=== PATIENT | female | born 1960 | race Caucasian/White ===

== ENCOUNTER 2019-07-14 00:29 | Emergency (ER) | payer OTHER ==
--- NOTE | 2019-07-14 02:14 | EDPHYS ---
Physician Documentation [facility] Name: Kristie Hanks Age: 58 yrs Sex: Female : 1960 Arrival Date: 07/14/2019 Time: 00:31 Bed 13 Private MD: ED Physician Marko Pretty HPI: 07/14 01:11 This 58 yrs old Female presents to ER via Wheelchair with complaints of Foot jmm Injury. 01:11 The patient presents with an injury, pain, that is acute. Onset: The symptoms/episode jmm began/occurred acutely, just prior to arrival. Modifying factors: The symptoms are alleviated by nothing. Associated signs and symptoms: Pertinent positives: swelling. This is a 58 year old female with a history of hypoglycemia that presents to the ED with complaints of left ankle pain beginning after missing a step. Denies other injury. Has not tried to bear weight. . Historical: - Allergies: 00:46 No Known Allergies; tr5 - PMHx: 00:46 hypoglycemic; tr5 - PSHx: 00:46 Tonsillectomy; tr5 - Immunization history:: Adult Immunizations up to date. - Social history:: Smoking status: Patient/guardian denies using tobacco. - Ebola Screening: : No symptoms or risks identified at this time. ROS: 01:11 Constitutional: Negative for fever, chills, and weight loss, Cardiovascular: Negative jmm for chest pain, palpitations, and edema, Respiratory: Negative for shortness of breath, cough, wheezing, and pleuritic chest pain. 01:11 MS/extremity: Positive for injury or acute deformity, pain, swelling. 01:11 All other systems are negative. Exam: 01:11 Constitutional: This is a well developed, well nourished patient who is awake, alert, jmm and in no acute distress. Head/Face: atraumatic. Eyes: EOMI, no conjunctival erythema appreciated ENT: Moist Mucus Membranes Neck: Trachea midline, Supple Chest/axilla: Normal chest wall appearance and motion. Cardiovascular: Regular rate and rhythm. No edema appreciated Respiratory: Normal respirations, no respiratory distress appreciated Abdomen/GI: Non distended, soft Back: Normal ROM Skin: General appearance color normal 01:11 Musculoskeletal/extremity: swelling noted to the left lateral ankle, no bony tenderness appreciated, compartments are soft, NVI, full dorsalis pulse. 01:11 Skin: Appearance: Color: normal in color. 01:11 Neuro: Orientation: is normal, Mentation: is normal, Memory: is normal. 01:11 Psych: Behavior/mood is pleasant, cooperative. Vital Signs: 00:46 BP 121 / 67; Pulse 78; Resp 16; Temp 98.1(O); Pulse Ox 100% on R/A; Weight 76.2 kg; tr5 Height 5 ft. 4 in. (162.56 cm); 01:45 BP 113 / 66; Pulse 92; Resp 16; Pulse Ox 100% on R/A; jb4 00:46 Body Mass Index 28.84 (76.20 kg, 162.56 cm) tr5 Procedures: 02:09 Splinting: Splint applied to left leg using Ortho 3D boot, applied by nurse. Examined jm by me, post splint application: neurovascular intact, 2+ distal pulses palpable, brisk capillary refill noted, Patient tolerated well. MDM: 01:03 Patient medically screened. [facility] 02:09 Data reviewed: vital signs, nurses notes. Counseling: I had a detailed discussion with evie the patient and/or guardian regarding: the historical points, exam findings, and any diagnostic results supporting the discharge/admit diagnosis, radiology results, the need for outpatient follow up, to return to the emergency department if symptoms worsen or persist or if there are any questions or concerns that arise at home. ED course: Patient is advised to follow up with ortho is pain continues after 1 week. Xray appears wnl. . 07/14 00:54 Order name: Ankle Left 3 View XRAY [facility] 07/14 01:31 Order name: Splint: ortho boot; Complete Time: 02:38 [facility] 07/14 01:38 Order name: Crutches; Complete Time: 02:38 [facility] Administered Medications: No medications were administered Disposition: 08:04 Co-signature as Attending Physician, Marko Pretty MD I agree with the assessment and tw4 plan of care. Disposition: 07/14/19 02:13 Discharged to Home. Impression: Sprain of ankle. - Condition is Stable. - Discharge Instructions: Ankle Sprain. - Prescriptions for Ibuprofen 800 mg Oral Tablet - take 1 tablet by ORAL route every 8 hours As needed take with food; 30 tablet. - Medication Reconciliation Form, Thank You Letter, Antibiotic Education, Prescription Opioid Use form. - Follow up: Basim Zafar MD; When: 2 - 3 days; Reason: Recheck today's complaints, Continuance of care, Re-evaluation by your physician. Signatures: Dispatcher [employer] [facility] Jeovany España PA PA jmm Bryson, James RN RN jb4 Marko Pretty MD MD tw4 Puneet Lowe RN RN tr5 Corrections: (The following items were deleted from the chart) 01:41 00:55 Foot Left 3 View+RAD.RAD.BRZ ordered. [facility] 02:40 02:13 07/14/2019 02:13 Discharged to Home. Impression: Sprain of ankle. Condition is jb4 Stable. Forms are Medication Reconciliation Form, Thank You Letter, Antibiotic Education, Prescription Opioid Use. Follow up: Basim Zafar; When: 2 - 3 days; Reason: Recheck today's complaints, Continuance of care, Re-evaluation by your physician. eve
--- NOTE | 2019-07-14 02:14 | ER ---
Nurse's Notes [facility] Name: Kristie Hanks Age: 58 yrs Sex: Female : 1960 Arrival Date: 07/14/2019 Time: 00:31 Bed 13 Private MD: Diagnosis: Sprain of ankle Presentation: 07/14 00:44 Presenting complaint: Patient states: I was stepping off the front porch when I rolled tr5 my ankle. Transition of care: patient was not received from another setting of care. Onset of symptoms was July 14, 2019. Risk Assessment: Do you want to hurt yourself or someone else? Patient reports no desire to harm self or others. Initial Sepsis Screen: Does the patient meet any 2 criteria? No. Patient's initial sepsis screen is negative. Does the patient have a suspected source of infection? No. Patient's initial sepsis screen is negative. Care prior to arrival: None. 00:44 Method Of Arrival: Wheelchair tr5 00:44 Acuity: BEENA 3 tr5 Historical: - Allergies: 00:46 No Known Allergies; tr5 - PMHx: 00:46 hypoglycemic; tr5 - PSHx: 00:46 Tonsillectomy; tr5 - Immunization history:: Adult Immunizations up to date. - Social history:: Smoking status: Patient/guardian denies using tobacco. - Ebola Screening: : No symptoms or risks identified at this time. Screenin:59 Abuse screen: Denies threats or abuse. Nutritional screening: No deficits noted. jb4 Tuberculosis screening: No symptoms or risk factors identified. Fall Risk None identified. Assessment: 00:59 General: Appears in no apparent distress. uncomfortable, Behavior is calm, cooperative, jb4 appropriate for age. Pain: Complains of pain in left lateral malleolus and left medial malleolus Pain does not radiate. Pain currently is 4 out of 10 on a pain scale. at worst was 8 out of 10 on a pain scale. Quality of pain is described as throbbing. Neuro: Level of Consciousness is awake, alert, obeys commands, Oriented to person, place, time, situation. Cardiovascular: Patient's skin is warm and dry. Respiratory: Airway is patent Respiratory effort is even, unlabored, Respiratory pattern is regular, symmetrical. GI: No signs and/or symptoms were reported involving the gastrointestinal system. : No signs and/or symptoms were reported regarding the genitourinary system. EENT: No signs and/or symptoms were reported regarding the EENT system. Derm: Skin is intact, Skin is pink, warm \T\ dry. Musculoskeletal: Circulation, motion, and sensation intact. Range of motion: limited in left ankle. 02:38 Reassessment: Patient appears in no apparent distress at this time. Patient and/or jb4 family updated on plan of care and expected duration. Pain level reassessed. Patient is alert, oriented x 3, equal unlabored respirations, skin warm/dry/pink. Vital Signs: 00:46 BP 121 / 67; Pulse 78; Resp 16; Temp 98.1(O); Pulse Ox 100% on R/A; Weight 76.2 kg; tr5 Height 5 ft. 4 in. (162.56 cm); 01:45 BP 113 / 66; Pulse 92; Resp 16; Pulse Ox 100% on R/A; jb4 00:46 Body Mass Index 28.84 (76.20 kg, 162.56 cm) tr5 ED Course: 00:31 Patient arrived in ED. jg7 00:40 Jeovany España PA is PHCP. jmm 00:40 Marko Pretty MD is Attending Physician. jmm 00:44 Juan Carlos Cabral, CAYDEN is Primary Nurse. jb4 00:45 Triage completed. tr5 00:46 Arm band placed on Patient placed. tr5 00:59 Patient has correct armband on for positive identification. Bed in low position. Call jb4 light in reach. Side rails up X 1. Pulse ox on. NIBP on. 01:44 Ankle Left 3 View XRAY In Process Unspecified. EDMS 02:11 Basim Zafar MD is Referral Physician. jmm 02:39 No provider procedures requiring assistance completed. Patient did not have IV access jb4 during this emergency room visit. 02:39 Crutch training done. jb4 Administered Medications: No medications were administered Outcome: 02:13 Discharge ordered by . jm 02:40 Discharged to home via wheelchair, with crutches, with family. jb4 02:40 Condition: stable 02:40 Discharge instructions given to patient, family, Instructed on discharge instructions, follow up and referral plans. medication usage, Demonstrated understanding of instructions, follow-up care, medications, Prescriptions given X 1. 02:40 Patient left the ED. jb4 Signatures: Dispatcher [employer] EDMS Jeovany España PA PA jmm Bryson, James, RN RN jb4 Puneet Lowe RN RN tr5 Malu Moran7
[2019-07-14 02:48] VITALS: BP 113/66; O2SAT 100
[2019-07-14 02:49] VITALS: TEMP 98.1
--- NOTE | 2019-07-14 08:09 | RAD REPORT ---
EXAM DESCRIPTION: RAD - Ankle Left 3 View -07/14/2019 1:43 am CLINICAL HISTORY: Left ankle pain status post injury FINDINGS: 6 millimeter bony density adjacent to the lateral malleolus likely an avulsion fracture. S maller additional bony densities noted. There is marked adjacent soft tissue swelling. No dislocation
== END 2019-07-14 02:40 | disposition home or self-care (01) ==
LOC: ER 00:29
DX: S93.402A Sprain of unspecified ligament of left ankle, initial encounter (principal); X50.1XXA Overexertion from prolonged static or awkward postures, initial encounter; Y93.9 Activity, unspecified; Y92.9 Unspecified place or not applicable
CPT/HCPCS: 99284

== ENCOUNTER 2021-03-27 13:24 | Observation (INO) | payer OTHER ==
[2021-03-27 15:03] LABS: Absolute Lymphocytes (CBC) 1.3 K/uL (0.7-4.9); Basophils % 0.9 % (0-1.3); Hematocrit 40.9 % (36.0-45.0); Lymphocytes % 23.5 % (15.3-44.8); MPV 8.8 fL (7.6-11.3); RBC Red Blood Cell Count 4.51 M/uL (3.86-4.86)
[2021-03-27 15:06] LABS: Protime INR 0.95
--- NOTE | 2021-03-27 15:30 | RAD REPORT ---
EXAM DESCRIPTION: RAD - Chest Single View - 03/27/2021 3:23 pm CLINICAL HISTORY: Pain;Chest pain COMPARISON: No comparisons FINDINGS: No evidence of edema or pneumonia. The heart size is within normal limits.No acute osseous abnormality. No significant pleural effusions or pneumothorax. Remote right mid clavicle fracture. IMPRESSION: No acute cardiopulmonary disease.
[2021-03-27 15:35] LABS: ALT/SGPT 30 U/L (12-78); AST/SGOT 29 U/L (15-37); Albumin 3.9 g/dL (3.4-5.0); Alkaline Phosphatase 67 U/L (45-117); BUN Blood Urea Nitrogen 9 mg/dL (7-18); Bicarbonate 29 mmol/L (21-32); Bilirubin Direct < 0.1 mg/dL (0-0.2); Bilirubin Total 0.3 mg/dL (0.2-1.0); Glucose Level 81 mg/dL (74-106); Magnesium 2.5 mg/dL (1.8-2.4); NT PRO-BNP 55 pg/mL (<125); Protein, Total 7.6 g/dL (6.4-8.2); Sodium Level 136 mmol/L (136-145); Troponin (Emerg Dept Use Only) < 0.02 ng/mL (0.0-0.045)
[2021-03-27 16:46] LABS: Blood Morphology Comment NOT SEEN (NOT SEEN); Platelet Estimate ADEQ; White Blood Cell Scan OK (OK)
--- NOTE | 2021-03-27 17:02 | EDPHYS ---
Physician Documentation [facility] Name: Kristie Hanks Age: 60 yrs Sex: Female : 1960 Arrival Date: 03/27/2021 Time: 13:27 Bed 20 Private MD: Puja Jarvis C ED Physician Jossie Mcclellan HPI: 03/27 16:59 This 60 yrs old Female presents to ER via Ambulatory with complaints of Chest jr8 Pain. 16:59 The patient or guardian reports chest pain that is located primarily in the substernal jr8 area. Onset: gradually, yesterday, and became persistent. The pain radiates to jaw. Associated signs and symptoms: Pertinent positives: shortness of breath. The chest pain is described as a pressure. Duration: The patient or guardian reports multiple episodes, that wax and wane. Modifying factors: The symptoms are alleviated by nothing. the symptoms are aggravated by exertion. Severity of pain: At its worst the pain was moderate. The patient has not experienced similar symptoms in the past. The patient has not recently seen a physician. This is a 60-year-old female patient who presented to the emergency room with onset of chest pain that started yesterday. Stated that it had relieved but then came back today. Stated that she was concerned because she had radiation to the jaw with shortness of breath yesterday. When it started again today wanted to be further evaluated. Had talked to her PCP about this who sent her immediately to the emergency room for evaluation.. Historical: - Allergies: 14:13 No Known Allergies; jl7 - Home Meds: 14:14 donepezil oral [Active]; jl7 - PMHx: 14:13 Hypoglycemic; jl7 14:15 alzheimer's gene; jl7 - Immunization history:: Adult Immunizations Client reports having NOT received the Covid vaccine. - Social history:: Smoking status: Patient denies any tobacco usage or history of. ROS: 16:59 Eyes: Negative for injury, pain, redness, and discharge, ENT: Negative for injury, jr8 pain, and discharge, Neck: Negative for injury, pain, and swelling, Abdomen/GI: Negative for abdominal pain, nausea, vomiting, diarrhea, and constipation, Back: Negative for injury and pain, MS/Extremity: Negative for injury and deformity, Skin: Negative for injury, rash, and discoloration, Neuro: Negative for headache, weakness, numbness, tingling, and seizure. 16:59 Cardiovascular: Positive for chest pain, Negative for edema, orthopnea, palpitations, paroxysmal nocturnal dyspnea. 16:59 Respiratory: Positive for shortness of breath. Exam: 16:59 Constitutional: This is a well developed, well nourished patient who is awake, alert, jr8 and in no acute distress. Neck: Trachea midline, no thyromegaly or masses palpated, and no cervical lymphadenopathy. Supple, full range of motion without nuchal rigidity, or vertebral point tenderness. No Meningismus. Chest/axilla: Normal chest wall appearance and motion. Nontender with no deformity. No lesions are appreciated. Cardiovascular: Regular rate and rhythm with a normal S1 and S2. No gallops, murmurs, or rubs. Normal PMI, no JVD. No pulse deficits. Respiratory: Lungs have equal breath sounds bilaterally, clear to auscultation and percussion. No rales, rhonchi or wheezes noted. No increased work of breathing, no retractions or nasal flaring. Abdomen/GI: Soft, non-tender, with normal bowel sounds. No distension or tympany. No guarding or rebound. No evidence of tenderness throughout. Back: No spinal tenderness. No costovertebral tenderness. Full range of motion. Skin: Warm, dry with normal turgor. Normal color with no rashes, no lesions, and no evidence of cellulitis. MS/ Extremity: Pulses equal, no cyanosis. Neurovascular intact. Full, normal range of motion. Neuro: Awake and alert, GCS 15, oriented to person, place, time, and situation. Cranial nerves II-XII grossly intact. Motor strength 5/5 in all extremities. Sensory grossly intact. Vital Signs: 14:09 BP 133 / 90; Pulse 64; Resp 17; Temp 97.5; Pulse Ox 100% ; Weight 76.2 kg; Height 5 ft. jl7 5 in. (165.10 cm); Pain 4/10; 18:21 BP 111 / 83; Pulse 60; Resp 15; Temp 98.1; Pulse Ox 100% ; Pain 4/10; ll1 14:09 Body Mass Index 27.96 (76.20 kg, 165.10 cm) jl7 MDM: 16:19 Patient medically screened. jr8 17:02 The patient was given aspirin in the Emergency Department. Data reviewed: vital signs, jr8 nurses notes, lab test result(s), EKG, radiologic studies, plain films. Data interpreted: Pulse oximetry: on room air is 100 %. Interpretation: normal. Counseling: I had a detailed discussion with the patient and/or guardian regarding: the historical points, exam findings, and any diagnostic results supporting the discharge/admit diagnosis, lab results, radiology results, the need for further work-up and treatment in the hospital. 03/27 14:38 Order name: Basic Metabolic Panel; Complete Time: 16:19 03/27 14:38 Order name: CBC with Diff; Complete Time: 16:50 03/27 14:38 Order name: LFT's; Complete Time: 16:19 03/27 14:38 Order name: Magnesium; Complete Time: 16:19 03/27 14:38 Order name: NT PRO-BNP; Complete Time: 16:19 03/27 14:38 Order name: PT-INR; Complete Time: 16:19 03/27 14:38 Order name: Troponin (emerg Dept Use Only); Complete Time: 16:19 03/27 16:46 Order name: CBC Smear Scan; Complete Time: 16:50 EDCO 03/27 18:08 Order name: COVID-19 : Document "Date of Symptom Onset" if Symptomatic. la1 03/27 20:21 Order name: CORONAVIRUS EDCO 03/27 21:16 Order name: Troponin I; Complete Time: 06:11 EDCO 03/27 21:25 Order name: SARS-COV-2 RT PCR; Complete Time: 06:11 EDCO 03/28 03:03 Order name: CBC with Automated Diff; Complete Time: 06:11 EDCO 03/28 03:11 Order name: Basic Metabolic Panel; Complete Time: 06:11 EDCO 03/27 14:38 Order name: EKG; Complete Time: 14:39 03/27 14:38 Order name: EKG - Nurse/Tech; Complete Time: 14:38 03/27 14:38 Order name: IV Saline Lock; Complete Time: 14:38 03/27 14:38 Order name: Labs collected and sent; Complete Time: 14:38 03/27 14:38 Order name: O2 Per Protocol; Complete Time: 18:03 iw 03/27 14:38 Order name: O2 Sat Monitoring; Complete Time: 18:03 03/27 14:39 Order name: XRAY Chest (1 view); Complete Time: 16:19 03/28 03:26 Order name: Troponin I; Complete Time: 06:11 EDMS Administered Medications: 18:20 Drug: Aspirin Chewable Tablet 324 mg Route: PO; ll1 18:24 Follow up: Response: No adverse reaction ll1 18:59 Follow up: Response: No adverse reaction ll1 Disposition: 03/29 07:10 Co-signature as Attending Physician, Jossie Mcclellan I agree with the assessment and plan sp3 of care. Disposition Summary: 03/27/21 17:02 Hospitalization Ordered Hospitalization Status: Observation jr8 Provider: Puja Jarvis Condition: Stable jr Problem: new jr8 Symptoms: are unchanged jr8 Bed/Room Type: Standard [facility] Location: [facility] ER HOLD(03/27/21 20:27) Room Assignment: ERHOLD-(03/27/21 20:27) Diagnosis - Chest pain, unspecified jr Forms: - Medication Reconciliation Form jr8 - SBAR form jr8 Signatures: Dispatcher [employer] EDMS Bobbi Rubio RN RN Zara Sutton RN CAYDEN Jose Mares PA PA jr8 Leal, Jahala, RN RN jl7 Lewis, Lynsay, RN RN ll1 Jossie Mcclellan sp3 Corrections: (The following items were deleted from the chart) 03/27 14:16 14:13 Home Meds: None; owen jl7 14:16 14:15 PMHx: Alzheimer's disease; jlOra jl7 20:27 17:02 Telemetry/MedSurg (observation) 8 20:27 17:02 jr8
--- NOTE | 2021-03-27 17:02 | ER ---
Nurse's Notes [facility] Name: Kristie Hanks Age: 60 yrs Sex: Female : 1960 Arrival Date: 03/27/2021 Time: 13:27 Bed 20 Private MD: Puja Jarvis C Diagnosis: Chest pain, unspecified Presentation: 03/27 14:09 Chief complaint: Patient states: Left sided chest pain and shoulder pain, reproducible jl7 with palpation and movement since Friday, also had bilateral posterior jaw pain and shortness of breath on Friday, resolved after 10-15 minutes, Dr. Jarvis said to come to the ER to be evaluated. Coronavirus screen: Client denies travel out of the [place] in the last 14 days. At this time, the client does not indicate any symptoms associated with coronavirus-19. Ebola Screen: No symptoms or risks identified at this time. Initial Sepsis Screen: Does the patient meet any 2 criteria? No. Patient's initial sepsis screen is negative. Does the patient have a suspected source of infection? No. Patient's initial sepsis screen is negative. Risk Assessment: Do you want to hurt yourself or someone else? Patient reports no desire to harm self or others. Onset of symptoms was March 25, 2021. Care prior to arrival: None. 14:09 Method Of Arrival: Ambulatory [facility] 14:09 Acuity: BEENA 2 jl7 Historical: - Allergies: 14:13 No Known Allergies; jl7 - Home Meds: 14:14 donepezil oral [Active]; jl7 - PMHx: 14:13 Hypoglycemic; jl7 14:15 alzheimer's gene; jl7 - Immunization history:: Adult Immunizations Client reports having NOT received the Covid vaccine. - Social history:: Smoking status: Patient denies any tobacco usage or history of. Screenin:02 Abuse screen: Denies threats or abuse. Nutritional screening: No deficits noted. ll1 Tuberculosis screening: No symptoms or risk factors identified. Fall Risk IV access (20 points). Total Garza Fall Scale indicates No Risk (0-24 pts). Assessment: 18:21 General: Appears in no apparent distress. Behavior is calm, cooperative, appropriate ll1 for age. Pain: Complains of pain in L chest Pain radiates to L shoulder Pain began 2-3 days ago. Neuro: No deficits noted. Cardiovascular: Reports chest pain, Heart tones S1 S2 Capillary refill < 3 seconds Clubbing of nail beds is absent JVD is absent Patient's skin is warm and dry. Rhythm is regular. Respiratory: No deficits noted. Airway is patent Trachea midline Respiratory effort is even, unlabored, Respiratory pattern is regular, symmetrical. GI: No deficits noted. Musculoskeletal: Circulation, motion, and sensation intact. Capillary refill < 3 seconds, Range of motion: intact in all extremities, Reports pain in L shoulder. 18:53 Reassessment: No changes from previously documented assessment. Patient and/or family ll1 updated on plan of care and expected duration. Pain level reassessed. Patient is alert, oriented x 3, equal unlabored respirations, skin warm/dry/pink. Vital Signs: 14:09 BP 133 / 90; Pulse 64; Resp 17; Temp 97.5; Pulse Ox 100% ; Weight 76.2 kg; Height 5 ft. jl7 5 in. (165.10 cm); Pain 4/10; 18:21 BP 111 / 83; Pulse 60; Resp 15; Temp 98.1; Pulse Ox 100% ; Pain 4/10; ll1 14:09 Body Mass Index 27.96 (76.20 kg, 165.10 cm) jl7 ED Course: 13:27 Patient arrived in ED. mr 13:27 Puja Jarvis MD is Private Physician. mr 14:13 Triage completed. jl7 14:15 Arm band placed on right wrist. Patient placed in waiting room, Patient notified of jl7 wait time. EKG completed in triage. Results shown to MD. 14:40 Initial lab(s) drawn, by me, sent to lab. Inserted saline lock: 20 gauge in right kj1 antecubital area, using aseptic technique. Blood collected. 15:23 XRAY Chest (1 view) In Process Unspecified. EDMS 16:19 [facility]. jr8 16:19 Jossie Mcclellan is Attending Physician. jr8 17:02 Puja Jarvis MD is Hospitalizing Provider. jr8 18:02 Patient has correct armband on for positive identification. Bed in low position. Call ll1 light in reach. Side rails up X 1. sleeve maker on. Pulse ox on. NIBP on. 18:02 Patient placed in an exam room, on a stretcher. ll1 18:02 No provider procedures requiring assistance completed. Patient maintains SpO2 ll1 saturation greater than 95% on room air. 18:03 Josie Forbes, RN is Primary Nurse. ll1 03/28 15:01 IV discontinued, intact, bleeding controlled, No redness/swelling at site. Pressure tr6 dressing applied. Administered Medications: 03/27 18:20 Drug: Aspirin Chewable Tablet 324 mg Route: PO; ll1 18:24 Follow up: Response: No adverse reaction ll1 18:59 Follow up: Response: No adverse reaction ll1 Outcome: 17:02 Decision to Hospitalize by Provider. jr8 03/28 15:01 Discharged to home ambulatory. tr6 Condition: good Discharge instructions given to patient, Instructed on discharge instructions, Demonstrated understanding of instructions, Prescriptions given X 15:01 Patient left the ED. tr6 Signatures: Dispatcher [employer] [facility] MikaAdelaida mr MaresJose PA PA jr8 Levy Danielle RN RN jl7 Tarsha Flor [facility] Josie Forbes, CAYDEN RN ll1 Alina Sanchez RN RN tr6 Corrections: (The following items were deleted from the chart) 03/27 14:16 14:13 Home Meds: None; jl7 jl7 14:16 14:15 PMHx: Alzheimer's disease; owen jl7
[2021-03-27] MEDS ORDERED: ASPIRIN 81 MG CHEWABLE TABLET ONE (18:29)
[2021-03-27] MEDS ORDERED: ONDANSETRON 4 MG/2 ML VIAL IV PRN (20:22)
[2021-03-27] MEDS ORDERED: ACETAMINOPHEN 500 MG TAB PO PRN (20:22)
[2021-03-27] MEDS ORDERED: MELATONIN 5 MG TABLET PO SCH (21:00)
[2021-03-27] MEDS ORDERED: ACETAMINOPHEN 500 MG TAB ONE (21:15)
[2021-03-27] MEDS ORDERED: MELATONIN 5 MG TABLET PO ONE (21:15)
[2021-03-28 03:00] LABS: Absolute Lymphocytes (CBC) 1.5 K/uL (0.7-4.9); Basophils % 0.8 % (0-1.3); Hematocrit 39.9 % (36.0-45.0); Lymphocytes % 26.4 % (15.3-44.8); MPV 8.6 fL (7.6-11.3)
[2021-03-28 03:11] LABS: BUN Blood Urea Nitrogen 13 mg/dL (7-18); Bicarbonate 29 mmol/L (21-32); Glucose Level 87 mg/dL (74-106); Potassium 4.1 mmol/L (3.5-5.1); Sodium Level 140 mmol/L (136-145)
[2021-03-28] MEDS ORDERED: ASPIRIN EC 81 MG TAB PO ONE (08:07)
[2021-03-28] MEDS ORDERED: ASPIRIN EC 81 MG TAB PO SCH (09:00)
[2021-03-28] MEDS ORDERED: REGADENOSON 0.4 MG/5 ML SYR IV ONE (09:09)
[2021-03-28 13:00] VITALS: O2SAT 96
[2021-03-28 15:26] VITALS: BP 111/83; TEMP 98.1
--- NOTE | 2021-03-28 16:29 | EKG ---
Test Date: 2021-03-27 Test Time: 14:19:40 Admitting Clerk: MARCIE MEASUREMENT RESULTS: Intervals: Rate: 59 CA: 154 QRSD: 78 QT: 426 QTc: 421 Erick: P: 65 CA: 154 QRS: 69 T: 37 INTERPRETIVE STATEMENTS: Sinus bradycardia Otherwise normal ECG No previous ECG available for comparison Electronically Signed On 03-28-21 16:24:18 CDT by Eran Ashraf
--- NOTE | 2021-03-29 06:19 | DS ---
Date of Discharge: 03/28/2021 Disposition: Discharged to go home. Physical Examination: HEENT: Examination unremarkable. Lungs: Clear to auscultation. Cardiac: Heart sounds normal. Abdomen: Soft, bowel sounds normal. No guarding, rigidity, tenderness, or distention. Extremities: No leg edema. Discharge Medications And Instructions: 1.Continue prior home medications. 2.Take Motrin 200 mg, patient to take 2 tablets by mouth 2 times a day with food for 5 to 7 days. 3.The patient to have outpatient stress test done with protection consultant and Dr. Ashraf's office will co ntact her with the appointment. 4.Follow up with my office next week on Friday. Discharge Diagnoses: 1.Chest pain. 2.Hyperlipidemia. 3.Alzheimer disease, on early stage. 4.Diverticulosis. Hospital Course: This is a 60-year-old very pleasant female patient who was admitted to the hospital with chest pain complaints. Please see dictated H and P for more information. After patient was ev aluated in the emergency room, she was admitted to the hospital. She was kept in hospital overnight. Her NC was ruled out by getting serial cardiac enzymes. Her troponin was less than 0.02 x3. Cardi ology consultation was obtained. Echocardiogram was done, result was pending by the time we discharg e her and I will follow up on outpatient basis. At the same time, Lexiscan stress test was ordered b ut unfortunately, nursing staff did not keep the patient n.p.o. after midnight and patient dagoberto otto could not get this Lexiscan stress test because she was not n.p.o. by the time field radio technician came to do the test. She already had her coffee and something else in the morning. With that in mind, deta ils were discussed with Dr. Ashraf at his office. We will contact the patient with outpatient stres s test, which will be done at his office. I suspect the patient's chest pain is musculoskeletal in o rigin on basis of her description and I have advised her to try to take Motrin for few days and I kay l see her as outpatient next week for followup. ANDRES/MODL Voice ID: [id number] Report ID: [id number]
--- NOTE | 2021-03-29 06:28 | HP ---
Date of Admission: 03/27/2021 Chief Complaint: Chest pain. History Of Present Illness: This is a -[id number]-seq very pleasant female patient who was movin g some 20 to 30 pounds heavy center blocks last week on Friday and after that she started to have thi s chest pain. The patient says this pain has been happening since that time and she describes her pa in as present in the middle of her chest and little to the left. It does not radiate anywhere, but s ome time she also has had some pain in her neck area. Denies any associated palpitation or shortness of breath. No fall. No injury. No cough, cold, congestion, or any expectoration. No hemoptysis. No recent travel. The patient reports that her pain gets worse when she takes deep breath or when s he moves in certain way, and also pain is reproducible with local palpation. She came into emergency room with this complaint. After she was evaluated, she was admitted to the hospital. I saw her in the ER. She was not in any distress at that time. Allergies: NO KNOWN ALLERGIES. Medications: She takes donepezil and valacyclovir at home. Donepezil is 10 mg daily. Valacyclovir is on a p.r.n. basis for fever blister. Review of Systems: Cardiovascular: As mentioned above. All other systems reviewed and negative. Past Medical History: Significant for Alzheimer disease, hyperlipidemia, diverticulosis. Past Surgical History: Surgery for deviated nasal septum, tonsillectomy. Family History: Father , had prostate cancer. Mother , had diabetes. Siblings have history of alcoholism. Social History: Negative for smoking. Use of alcohol occasional. Physical Examination: Vital Signs: When she came in, blood pressure 133/90, pulse 64, respiratory rate 17, temperature 97. 5, pulse ox 100%. Height 5 feet 5 inches, weight 76.2 kg. General: Awake, alert, oriented, not in distress. HEENT: Head atraumatic, normocephalic. Conjunctivae nonerythematous. Sclerae white. Mouth, no thr ush or edema noted. Ears/Nose, no mass, lesion, discharge noted. Neck: Supple. No JVD, lymph nodes, bruit, thyromegaly noted. Lungs: Bilateral good equal air entry. Clear to auscultation. No rhonchi. No rales. Heart: Normal heart sounds, no murmur or gallop. Abdomen: Soft, bowel sounds normal. No guarding, rigidity, tenderness, mass, hepatosplenomegaly, dis tention, or bruit noted. Extremities: No leg edema. No calf tenderness. Skin: No rash, ulcer, cellulitis. Lymphatics: No lymph node enlargement in neck, supraclavicular, infraclavicular region. Neuro: No focal neurological deficit. Chest: Unremarkable. External Genitalia: Deferred. Rectal: Deferred. Laboratory Data: White count 5.4, hemoglobin 13.6, platelets 200. Sodium 136, potassium 4, chloride 104, bicarb 29, BUN 9, creatinine 0.78, glucose 81. Liver function tests normal. Troponin less nayan n 0.02. COVID-19 test negative. Chest x-ray negative for any acute cardiopulmonary changes. EKG no rmal sinus rhythm, no acute ST-T changes. Impression: 1.Chest pain. 2.Hyperlipidemia. 3.Alzheimer disease, early stage. 4.Diverticulosis. Plan: Admit the patient to hospital for further evaluation and management of this problem. The ashish ent is appropriate for observation. We will get serial cardiac enzymes to rule out MN. Consult Card iology. Tomorrow morning, we will go ahead and plan to do echocardiogram and Lexiscan stress test. Details and plan of treatment discussed with the patient. I will see her tomorrow morning for followup. ANDRES/RUI Voice ID: [id number]
--- NOTE | 2021-03-29 06:34 | ECHO ---
HEIGHT: 5 ft 5 in WEIGHT: 168 lb 0 oz DATE OF STUDY: 03/28/[address]: Brett Jarvis MD 2-DIMENSIONAL: YES M.MODE: YES DOPPLER: YES COLOR FLOW: YES TDS: PORTABLE: DEFINITY: BUBBLE STUDY: DIAGNOSIS: CHEST PAIN CARDIAC HISTORY: CATHERIZATION: SURGERY: PROSTHETIC VALVE: PACEMAKER: MEASUREMENTS (cm) DIASTOLIC (NORMALS) SYSTOLIC (NORMALS) IVSd 0.8 (0.6-1.2) LA Diam 2.5 (1.9-4.0) LVEF 69% LVIDd 4.5 (3.5-5.7) LVIDs 2.7 (2.0-3.5) %FS 39% LVPWd 0.9 (0.6-1.2) Ao Diam 2.1 (2.0-3.7) 2 DIMENSIONAL ASSESSMENT: RIGHT ATRIUM: NORMAL LEFT ATRIUM: NORMAL RIGHT VENTRICLE: NORMAL LEFT VENTRICLE: NORMAL TRICUSPID VALVE: NORMAL MITRAL VALVE: NORMAL PULMONIC VALVE: NORMAL AORTIC VALVE: NORMAL PERICARDIAL EFFUSION: NONE AORTIC ROOT: NORMAL LEFT VENTRICULAR WALL MOTION: NORMAL DOPPLER/COLOR FLOW: NORMAL COMMENTS: NORMAL 2-DIMENSIONAL ECHOCARDIOGRAM WITH DOPPLER. NO WALL MOTION ABNORMALITY. NO EFFUSION. TECHNOLOGIST: AGAPITO CANTU
--- NOTE | 2021-03-29 12:34 | CON ---
Date of Consultation: 03/28/2021 Reason For Consultation: Atypical chest pain. History Of Present Illness: Ms. Hanks is a 60-year-old woman, who really has no significant past med ical history. She takes for hypoglycemia. Has no allergies. No significant cardiac risk factors. Came in with chest pain in the substernal region that occasionally radiates to the jaw. S he has some shortness of breath with her chest pain described as pressure, but it is not always exert ional. Denied PND, orthopnea, pedal edema, palpitations, or syncope. I think because of her shortne ss of breath and jaw radiation, she was concerned and was came into the emergency room where she was found to have a blood pressure of 133/90, O2 saturation was 100%. The patient was not examined by me . I just talked to her briefly after her echocardiogram results. Her echocardiogram was perfectly n ormal. Her chest x-ray was normal. Her EKG showed sinus bradycardia. I discussed the case with her and with Dr. Jarvis. Her diagnostic data as far as the lab work is concern is unremarkable. I am com fortable with her going home. I will set her up for an outpatient MPI. SAM/RUI Voice ID: [id number] Report ID: [id number]
== END 2021-03-28 14:56 | disposition home or self-care (01) ==
LOC: ER 13:24 → ERHOLD 17:46
PROVIDERS: ADMIT Internal Medicine; ATTEND Internal Medicine
DX: R07.9 Chest pain, unspecified (principal); G30.0 Alzheimer's disease with early onset; F02.80 Dementia in other diseases classified elsewhere, unspecified severity, without behavioral disturbance, psychotic disturbance, mood disturbance, and anxiety; E78.5 Hyperlipidemia, unspecified; K57.90 Diverticulosis of intestine, part unspecified, without perforation or abscess without bleeding; Z20.822 Contact with and (suspected) exposure to COVID-19; Z80.42 Family history of malignant neoplasm of prostate; Z83.3 Family history of diabetes mellitus
CPT/HCPCS: 93005; 93306; 85025 ×2; 80048 ×2; 36415; 83735; 85610; 80076; 84484 ×3; 83880; 71045; 99285; U0003; G0378 ×3; J2785